=== PATIENT | female | born 1980 | race Caucasian/White ===

== ENCOUNTER → 2020-02-03 13:23 | Outpatient (CLI) | payer OTHER, SELFPAY | PROVIDERS: PCP Family Medicine; Referring Provider Nurse Practitioner Family; Visit Provider Nurse Practitioner Family | DX: R68.89 Other general symptoms and signs (principal) | CPT/HCPCS: 87635; G2023; U0003 ==

== ENCOUNTER → 2022-03-18 | Outpatient (CLI) | payer OTHER, SELFPAY ==
[2022-03-18 15:30] LABS: Absolute Lymphocyte Count 5.16 X10^3/uL (0.83-4.51); Basophil# 0.07 X10^3/uL; Basophil% 0.4 % (0-1); Eosinophil# 0.11 X10^3/uL; Eosinophils% 0.7 % (0-5); Hematocrit 44.1 % (37-47); Hemoglobin 14.5 g/dL (12.0-15.0); Lymphocyte # 5.16 X10^3/ul (0.83-4.51); Lymphocyte % 30.8 % (19-41); Mean Corp Hgb Conc 32.9 g/dL (32-36); Mean Corpuscular Hgb 30.6 pg (27.0-32.0); Mean Platelet Vol. 10.9 fl (6.2-12.0); Monocyte# 1.25 X10^3/uL; Monocyte% 7.5 % (0-10); NRBC Flagged by Analyzer 0 % (0-5); Neutrophil # 10.02 X10^3/uL (2.7-7.7); Neutrophil % 59.6 % (47-70); POSITIVE DIFFERENTIAL YES; Platelet Count 307 K/mm3 (150-450); RBC Distribution Width CV 13.8 % (11.6-14.6); RBC Distribution Width SD 47.1 fl (35.1-43.9); Red Blood Count 4.74 M/mm3 (4.2-5.4); White Blood Count 16.8 K/mm3 (4.4-11.0)
[2022-03-18 15:39] LABS: Vitamin B12 477 pg/mL (211-911); Vitamin D,25 Hydroxy 34.6 ng/mL
[2022-03-18 15:40] LABS: Differential Indicated SCAN CRITERIA MET; Hemoglobin A1c 5.4 % (3.8-5.6)
[2022-03-18 16:07] LABS: AST(SGOT) 11 U/L (15-37); Alanine Aminotransfer ALT/SGPT 27 U/L (13-56); Albumin, Serum 3.5 g/dL (3.2-5.0); Alkaline Phosphatase 58 U/L (45-117); Anion Gap 8 (5-15); BUN 12 mg/dL (7-18); BUN/Creat Ratio 13.7 RATIO (10-20); CRP < 2.90 mg/L (0.0-3.0); Calcium,Total 9.1 mg/dL (8.5-10.1); Chloride 103 mmol/L (98-107); Cholesterol 182 mg/dL (200); Creatinine, Serum 0.87 mg/dL (0.55-1.02); EST Glomerular Filtration Rate 75 mL/min (>60); Est Glom Filt Rate - Afr Amer 91 mL/min (>60); Ferritin 28 ng/mL (8-252); Globulin 3.6 g/dL (2.2-4.2); Glucose 91 mg/dL (74-106); High Density Lipoprotein 43 mg/dL; Potassium 3.9 mmol/L (3.5-5.1); Protein, Total 7.1 g/dL (6.4-8.2); Rheumatoid Factor < 10.0 IU/mL (<15); Sodium Level 137 mmol/L (136-145); Thyroid Stim Hormone (TSH) 1.44 uIU/mL (0.358-3.74); Triglycerides 357 mg/dL; Very Low Density Lipoprotein 71 mg/dL (5-40)
[2022-03-18 16:13] LABS: Differential Comment SCANNED; Erythrocyte Sedimentation Rate 11 mm/hr (0-30)
[2022-03-19 08:10] LABS: Progesterone Level < 0.21 ng/mL (See Comment)
[2022-03-20 16:26] LABS: ANTINUCLEAR ANTIBODIES DIRECT Negative (Negative)
[2022-03-21 22:09] LABS: HPV HC, High Risk Negative
== END | disposition home or self-care (01) ==
PROVIDERS: PCP Family Medicine; Referring Provider Family Medicine; Visit Provider Family Medicine
DX: Z00.00 Encounter for general adult medical examination without abnormal findings (principal); Z86.19 Personal history of other infectious and parasitic diseases; M79.10 Myalgia, unspecified site; Z13.0 Encounter for screening for diseases of the blood and blood-forming organs and certain disorders involving the immune mechanism; R53.83 Other fatigue; Z13.1 Encounter for screening for diabetes mellitus; Z13.220 Encounter for screening for lipoid disorders; Z13.29 Encounter for screening for other suspected endocrine disorder
CPT/HCPCS: 36415; 80053; 80061; 81374; 82306; 82607; 82672; 82728; 83036; 84144; 84443; 85025; 85652; 86038; 86140; 86200; 86431; 87624; 88175; G0145

== ENCOUNTER → 2022-07-02 | Outpatient (CLI) | payer OTHER, SELFPAY ==
--- NOTE | 2022-07-02 14:09 | BI_ITS ---
MAMMOGRAPHY - BILATERAL SCREENING REASON FOR EXAM: Female, 41 years old. Routine annual screening examination. PERTINENT HISTORY: Non-contributory. TECHNIQUE: Digital bilateral breast lisa (3D mammographic acquisition) in the CC and MLO projections. 2-D mediolateral oblique (MLO) and craniocaudad (CC) views of both breasts were obtained. CAD: Full Field Digital Mammography with Computer Added Detection was performed. COMPARISON: None. Baseline examination. FINDINGS: Breast Composition: The breasts are extremely dense, which lowers the sensitivity of mammography. There are no dominant masses or suspicious calcifications. Small benign-appearing bilateral axillary No other significant abnormalities are identified. BI/SCRN MAMM (CAD)W/LISA BILAT IMPRESSION: Negative screening mammogram. Yearly followup mammogram recommended. (A) ASSESSMENT CATEGORY: BIRADS Category 2: Benign. A letter regarding these results will be sent to the patient by the facility within 30 days. Approximately 10% of breast cancers are not detected by mammography. A normal mammogram should not delay biopsy of a clinically suspicious abnormality. [id number] Electronically Signed: Calvin Quintero MD at 14:47 EST ,
== END | disposition home or self-care (01) ==
LOC: OPBI 14:07
PROVIDERS: PCP Family Medicine; Visit Provider Family Medicine
DX: Z12.31 Encounter for screening mammogram for malignant neoplasm of breast (principal)
CPT/HCPCS: 77063; 77067

== ENCOUNTER 2024-02-11 11:29 | Emergency (ER) | payer BC, SELFPAY ==
[2024-02-11 11:29] VITALS: BP 125/87; PULSE 82; RESP 14; TEMP 36.8; O2SAT 100; BMI 29.7
--- NOTE | 2024-02-11 11:53 | EDS_ITS ---
HPI History of Present Illness Chief Complaint: Abd Pain Detail of Chief Complaint: Abdominal pain right upper quadrant, nausea vomiting diarrhea Informant: patient Onset/Context/Timing Onset: Today (Diarrhea started today), Yesterday (Vomiting started yesterday) and Days (Abdominal pain started Thursday, February 07) Context: Sudden Onset Timing: Continuous Quality: Pain Location: Right upper quadrant radiating through to the back Current Severity: Mild Maximum Severity: Severe Worsened by: Palpation of the right upper quadrant and movement Relieved by: Nothing Associated Symptoms Associated Symptoms: No fever or chills and previously documented Narrative Narrative: Patient is a 43-year-old woman who drove herself to the emergency room because o f abdominal pain that started on Thursday, February 07 right upper quadrant rating to her back. She has no history of intolerance to greasy or fried foods. There is a family history cholelithiasis. She denies history of biliary disease. She reports yesterday she had vomiting. She had no hematemesis or coffee-ground emesis. She reports diarrhea that started today. There is no blood or mucus in her diarrhea. She has had no ill contacts. She denies history of renal or ureterolithiasis. There is no known family history of renal or ureterolithiasis. Patient denies fever, chills night sweats. Denies weight gain weight loss. Patient denies dysuria, frequency, urgency or hematuria. She admits to decreased urine output. Prior similar symptoms: No Recent Illness/Hospitalization: No PFSH PFS Medical History Bilateral hip pain Uses control Home Medications ?Medication ?Instructions ?Recorded ?Last Taken ?Type dicyclomine 10 mg capsule 20 mg (2 x 10 mg) PO TIDAC #40 caps 08/23/16 Unknown Rx ondansetron 4 mg disintegrating 4 mg PO Q8H PRN PRN Nausea #8 tabs 08/23/16 Unknown Rx tablet dicyclomine 10 mg capsule 20 mg (2 x 10 mg) PO TIDAC #20 02/11/24 Unknown Rx CAPSULES ondansetron 4 mg disintegrating 4 mg PO Q8H PRN PRN Nausea #5 tabs 02/11/24 Unknown Rx tablet Allergy/AdvReac Type Severity Reaction Status Date / Time naproxen (From Naprosyn) Allergy Intermediate tachycardia Verified 02/11/24 11:30 acetaminophen (From Vicodin) Allergy Swelling Verified 02/11/24 11:30 hydrocodone bitartrate (From Allergy Swelling Verified 02/11/24 11:30 Vicodin) Iodinated Contrast Media Allergy Swelling Verified 02/11/24 11:30 Family History Grandmother Cancer throat Heart disease Hypertension Obesity Mother Hypertension Heart disease Obesity Grandfather Blood disorder maternal - unknown specifics, multiple blood clots AA (alcohol abuse) Obesity Colon cancer Father Heart disease AA (alcohol abuse) Aunt Obesity Surgical History H/O knee surgery Hx of tonsillectomy Social History current occupation: [employer] current occupational exposures/hazards: Yes (stocks propane, weed killer) pets and animals: Yes pets and animals: cat(s) and dog(s) history of recent travel: No Smoking Status: Current every day smoker tobacco type: cigarettes Tobacco: How many years used: 15 alcohol intake: current alcohol intake frequency: holidays/special occasions only Alcohol type: beer substance use type: does not use caffeine: Yes Type: carbonated beverages Number of servings: 1 and coffee Number of servings: 2 ROS ROS ED Constitutional Constitutional ED: Denies chills, fever(s), subjective, sweats or weight loss Eyes Eyes: Denies blurry vision or change in vision ENT ENT ED: Denies rhinorrhea or sore throat Cardiovascular Cardiovascular: Denies chest pain or palpitations Respiratory/Chest Respiratory/Chest: Denies cough, dyspnea or dyspnea on exertion Gastrointestinal Gastrointestinal: Reports abdominal pain, diarrhea, nausea and vomiting; Denies constipation or melena Genitourinary Genitourinary ED: Denies dysuria, hematuria or urinary frequency Musculoskeletal Musculoskeletal: Reports back pain; Denies arthralgias, myalgias or neck pain Integumentary Denies rash Neurologic Neurologic: Denies headache(s) Endocrine Endocrinology: Denies cold intolerance or heat intolerance Hematologic/Lymphatic Hematologic/Lymphatic: Reports systems reviewed and no addt'l complaints, except as documented EXAM Physical Exam Const Vital Signs: 02/11/24 11:29 Temperature 98.2 F Temperature Source Temporal Pulse Rate 82 Respiratory Rate 14 Blood Pressure 125/87 H Blood Pressure Mean 99 Pulse Ox 100 Oxygen Delivery Method Room Air Positive well nourished and well developed Constitutional Narrative: Ill-appearing woman who appears slightly uncomfortable. General Appearance ED: well developed; Negative for pallor HEENT Reports dry mucous membranes HEENT Narrative: Head is atraumatic cephalic. Ears normal. Nares patent. Mouth ED: Yes dry mucous membranes Mouth: dry mucous membranes Eyes PERRL and EOMs intact bilaterally General Eye ED: Negative for pale conjunctiva or scleral icterus Neck no lymphadenopathy Resp normal respiratory effort and clear to auscultation bilaterally Cardio regular rate, regular rhythm, S1 normal heart sound, S2 normal heart sound and no murmurs GI non-distended and no masses; Negative for non-tender or hepatosplenomegaly Auscultation: hypoactive bowel sounds Palpation: tender RUQ, suprapubic and Vasquez's sign and guarding RUQ; Negative for splenomegaly or mass Back/Spine no CVA tenderness General Back: Negative for CVA tenderness Extremity normal to inspection General Extremety ED: Negative for edema or tenderness General Extremity: Negative for edema Neuro oriented x3 and CN's II-XII intact bilaterally Sensorium / Orientation: alert Psych mental status grossly normal Skin no rashes or lesions noted, no wounds and skin turgor normal General Skin Exam: Negative for jaundice or pallor MDM MDM MDM Narrative Medical decision making narrative: With right upper quadrant pain rating to his back differential diagnosis would include cholelithiasis, obstructing ureteral stone, abdominal pain of unknown etiology, with her now reporting vomiting diarrhea need to consider infectious. This would not cause the abdominal pain that started several days prior to the nausea and vomiting. With her having suprapubic discomfort will obtain UA to assess for blood as well as infection. In light of patient's allergies and the fact she drove herself to the Emergency Department she was treated with ketorolac for her pain and Zofran for her nausea. She also was given 1 L normal saline since clinically she appears dehydrated. Patient had coffee with cream at 0730. Will wait to at least 12:30 PM prior to ultrasound and also will depend on laboratory results. Lab Data Attestation: I reviewed the patient's lab results. Lab results narrative: White count is normal. Differential is normal. H&H is normal with normal indices. Comprehensive metabolic panel is unremarkable. Urine is clean. Labs: Laboratory Results - last 24 hr 06/27/24 06/27/24 12:30 12:35 WBC 10.3 RBC 5.00 Hgb 15.0 Hct 45.4 MCV 90.8 MCH 30.0 MCHC 33.0 RDW Std Deviation 45.3 H RDW Coeff of Con 13.6 Plt Count 276 MPV 10.8 Immature Gran % (Auto) 0.300 Neut % (Auto) 61.3 Lymph % (Auto) 30.8 Rich % (Auto) 6.1 Eos % (Auto) 1.0 Baso % (Auto) 0.5 Absolute Neuts (auto) 6.3 Absolute Lymphs (auto) 3.16 Nucleated RBC % 0 Sodium 138 Potassium 3.6 Chloride 108 H Carbon Dioxide 24.0 Anion Gap 6 BUN 10 Creatinine 0.89 Estim Creat Clear Calc 90.92 Est GFR (MDRD) Af Amer 89 Est GFR (MDRD) Non-Af 73 BUN/Creatinine Ratio 11.2 Glucose 101 Calcium 9.4 Total Bilirubin 0.20 Direct Bilirubin 0.07 AST 15 ALT 38 Alkaline Phosphatase 76 Total Protein 8.1 Albumin 4.2 Globulin 3.9 Lipase 36 Urine Color Yellow Urine Clarity Clear Urine pH 6.5 Ur Specific [place] 1.005 Urine Protein Negative Urine Glucose (UA) Normal Urine Ketones Negative Urine Occult Blood Negative Urine Nitrite Negative Urine Bilirubin Negative Urine Urobilinogen Normal Ur Leukocyte Esterase Negative Urine RBC 0 SEEN Urine WBC 0 SEEN Ur Squamous Epith Cells 0 SEEN Urine Bacteria 0 SEEN Urine Mucus 0 SEEN Radiography Diagnostic Testing: Clinical Impression(s) from Imaging Studies Gallbladder Ultrasound 02/11/24 13:03 IMPRESSION: Normal right upper quadrant ultrasound examination. Electronically Signed: Raheem Bahena MD at 14:40 EDT , Treatment and Re-Evaluation :: Patient was reassessed. She reports improvement after IV Toradol. She does not want anything for pain. She was told of her test results and that an ultrasound of the gallbladder has been ordered. She last had something to eat or drink 6 hours ago. She had a couple coffee from [employer] with cream. Comments:: Patient informed of ultrasound results. The cause of her right upper quadrant pain is unknown. Will prescribe Bentyl since this may represent colicky abdominal pain since she has had diarrhea and vomiting. Discharge Plan Triage Chief Complaint: Abd Pain ED Provider: Anish Hernandez Dx/Rx/DC Orders Clinical Impression: Right upper quadrant abdominal pain, Nausea vomiting and diarrhea Instructions: ED Abdominal Pain Unkn Cause Fem, ED Vomit Diarrhea Nonspec Adult Prescriptions: New ondansetron 4 mg tablet,disintegrating 4 mg PO Q8H PRN PRN (Reason: Nausea) Qty: 5 0RF dicyclomine 10 mg capsule 20 mg PO TIDAC Qty: 20 0RF No Action ondansetron 4 MG tablet 4 mg PO Q8H PRN PRN (Reason: Nausea) Qty: 8 0RF dicyclomine 10 MG capsule 20 mg PO TIDAC Qty: 40 0RF Primary Care Provider: Ivone Mcdermott Referrals: Ivone Mcdermott DO [Primary Care Provider] - Print Language: [place] Disposition Disposition: Home, Self Care
[2024-02-11 12:37] LABS: Bacteria 0 SEEN /hpf (None Seen); Mucous, Urine 0 SEEN /hpf (<or=2+); Red Blood Cells-Urine 0 SEEN /hpf (0-5); Squamous Epithelial Cells - UA 0 SEEN /hpf (5-10); White Blood Cells 0 SEEN /hpf (0-5)
[2024-02-11] MEDS: Ondansetron 4 MG/2 ML Vial IV (12:37)
[2024-02-11] MEDS: 0.9% Normal Saline (1000mL) 1,000 ML 999 ML IV (12:37)
[2024-02-11] MEDS: Ketorolac 15 MG/ML Vial IV (12:37)
[2024-02-11 12:41] LABS: Color, Urine Yellow (Yellow); Glucose, Dipstick Normal (Normal); Ketone-Dipstick Negative (Negative); Leukocyte Esterase-Dipstick Negative /ul (Negative); Nitrite-Dipstick Negative (Negative); Occult Blood-Urine Negative /ul (Negative); Protein-Dipstick Negative (Negative); Specific Gravity, Urine 1.005 (1.002-1.030); Urine Bilirubin Dipstick Negative (Negative); Urine Clarity Clear (Clear); Urine Urobilinogen Normal (Normal); Urine pH 6.5 (5.0 - 8.0)
[2024-02-11 12:43] LABS: Absolute Lymphocyte Count 3.16 X10^3/uL (0.83-4.51); Absolute Neutrophil Count 6.3 X10^3/uL (2.0-7.7); Basophil# 0.05 X10^3/uL; Basophil% 0.5 % (0-1); Hematocrit 45.4 % (37-47); Lymphocyte # 3.16 X10^3/ul (0.83-4.51); Lymphocyte % 30.8 % (19-41); Mean Corpuscular Volume 90.8 fL (81-99); Mean Platelet Vol. 10.8 fl (6.2-12.0); Monocyte# 0.63 X10^3/uL; Monocyte% 6.1 % (0-10); NRBC Flagged by Analyzer 0 % (0-5); Neutrophil # 6.29 X10^3/uL (2.7-7.7); Neutrophil % 61.3 % (47-70); Platelet Count 276 K/mm3 (150-450); RBC Distribution Width CV 13.6 % (11.6-14.6); RBC Distribution Width SD 45.3 fl (35.1-43.9); White Blood Count 10.3 K/mm3 (4.4-11.0)
[2024-02-11 12:57] LABS: AST(SGOT) 15 U/L (15-37); Alanine Aminotransfer ALT/SGPT 38 U/L (13-56); Albumin, Serum 4.2 g/dL (3.2-5.0); Alkaline Phosphatase 76 U/L (45-117); Anion Gap 6 (5-15); BUN 10 mg/dL (7-18); BUN/Creat Ratio 11.2 RATIO (10-20); Bilirubin, Direct 0.07 mg/dL (0.00-0.30); Calcium,Total 9.4 mg/dL (8.5-10.1); Chloride 108 mmol/L (98-107); Creatinine, Serum 0.89 mg/dL (0.55-1.02); EST Glomerular Filtration Rate 73 mL/min (>60); Est Glom Filt Rate - Afr Amer 89 mL/min (>60); Estimated Creatinine Clearance 90.92 ml/min; Globulin 3.9 g/dL (2.2-4.2); Glucose 101 mg/dL (74-106); Lipase 36 U/L (13-75); Potassium 3.6 mmol/L (3.5-5.1); Protein, Total 8.1 g/dL (6.4-8.2); Sodium Level 138 mmol/L (136-145)
--- NOTE | 2024-02-11 13:03 | US_ITS ---
STUDY: ABDOMINAL ULTRASOUND - RIGHT UPPER QUADRANT REASON FOR VISIT: Female, 43 years old Right upper quadrant pain radiating to the back TECHNIQUE: Ultrasound evaluation of the right upper quadrant was performed with real-time and static kaiser-scale imaging. TECHNICAL QUALITY: Adequate. COMPARISON: CT abdomen and pelvis without contrast 08/23/2016. FINDINGS: Liver: The liver measures 17.6 cm. There is normal echogenicity of the liver. The bile ducts are within normal limits. There is hepatic color flow. The direction of portal flow is hepatopetal. There is no demonstrated mass lesion. No right pleural effusion. No ascites. Gallbladder: Normal distended gallbladder. The gallbladder wall measures 2.0 mm. There is a negative sonographic Vasquez''s sign. There is no pericholecystic fluid. There are no gallstones. Common Bile Duct (C.B.D.): The common bile duct measures 3.3 mm. Pancreas: Normal size of the head, body and tail of the pancreas. There is normal echogenicity of the pancreas. There is no demonstrated pancreatic mass or cyst. The pancreatic duct is not dilated. Right Kidney: Normal size of the right kidney. The right kidney measures 11.5 x 5.1 x 4 point cm. Normal renal cortex. The right cortex measures 1.5 cm. There is no demonstrated renal mass or cyst. There is no right hydronephrosis. US/Gallbladder IMPRESSION: Normal right upper quadrant ultrasound examination. Electronically Signed: Raheem Bahena MD at 14:40 EDT ,
[2024-02-11 15:10] VITALS: BP 117/71; PULSE 68; RESP 16; TEMP 36.6; O2SAT 98
== END 2024-02-11 15:11 | disposition home or self-care (01) ==
PROVIDERS: Emergency Provider Emergency Medicine; PCP Family Medicine; Visit Provider Emergency Medicine
DX: R10.11 Right upper quadrant pain (principal); R11.2 Nausea with vomiting, unspecified; F17.210 Nicotine dependence, cigarettes, uncomplicated; R19.7 Diarrhea, unspecified; M54.9 Dorsalgia, unspecified
CPT/HCPCS: 76705; 80048; 80076; 81001; 83690; 85025; 96361; 96374; 96375; 99283; J7030; A4216; J2405